=== PATIENT | female | born 1980 | race American Indian/Alaskan Native ===

== ENCOUNTER 2019-06-03 03:06 | Emergency (ER) | payer MEDICAID ==
[2019-06-03 03:14] VITALS: BP 130/91
== END 2019-06-03 08:00 | disposition left against medical advice (07) ==
LOC: ED 03:06
DX: R42 Dizziness and giddiness (principal); Z53.21 Procedure and treatment not carried out due to patient leaving prior to being seen by health care provider

== ENCOUNTER 2019-06-17 21:33 | Emergency (ER) | payer MEDICAID ==
[2019-06-17 22:14] VITALS: BP 142/97
[2019-06-17] MEDS ORDERED: dexAMETHasone 4 MG/ML VIAL IV ONE (22:14)
[2019-06-17] MEDS ORDERED: FAMOTIDINE 20 MG/2 ML INJ IV ONE (22:14)
[2019-06-17] MEDS ORDERED: diphenhydrAMINE 50 MG/ML VIAL IV ONE (22:14)
[2019-06-17] MEDS ORDERED: SODIUM CHLORIDE 0.9% 1000 ML 1,000 ML IV ONE (22:14)
--- NOTE | 2019-06-17 22:14 | Emergency Department Report ---
Blank Doc - Documentation Documentation: 38-year-old female that presents with allergies reaction and itching. exam: no angioedema present. No SOB. This initial assessment/diagnostic orders/clinical plan/treatment(s) is/are subject to change based on patient's health status, clinical progression and re-assessment by fellow clinical providers in the ED. Further treatment and workup at subsequent clinical providers discretion. Patient/guardians urged not to elope from the ED as their condition may be serious if not clinically assessed and managed. Initial orders include: 1- Patient sent to [facility] for further evaluation and treatment 2- treatment in [facility]
[2019-06-18] MEDS ORDERED: diphenhydrAMINE 50 MG/ML VIAL ONE (00:32)
[2019-06-18] MEDS ORDERED: dexAMETHasone 4 MG/ML VIAL ONE (00:32)
[2019-06-18] MEDS ORDERED: FAMOTIDINE 20 MG/2 ML INJ IV ONE (00:33)
--- NOTE | 2019-06-18 01:12 | Emergency Department Report ---
ED General Adult HPI - General Chief complaint: Allergic Reaction Stated complaint: ALLERGIC REACTION Time Seen by Provider: 06/17/19 22:13 Source: patient Mode of arrival: Ambulatory Limitations: No Limitations - History of Present Illness Initial comments: 38-year-old -[place] female presents to the emergency room stating she's has a rash all over that started over a week ago. Patient states it was only rash when she went to sleep and now is all the time. Patient reports itching. Denies any swelling to the tongue or throat denies any wheezes chest pain or shortness of breathing. Patient reports she's been taking Benadryl which was helping but no longer helping. Patient reports she was seen by her primary care provider and they did an allergy panel which was negative for any offending agents. Patient denies any change of soaps deodorant lotions perfumes no new pets or new detergents. Patient does admit to being under increased stress. Patient does report a past medical history of hypertension but never started blood pressure medication. Onset/Timin -: week(s) Location: face, abdomen, upper extremity, lower extremity Associated Symptoms: denies other symptoms Treatments Prior to Arrival: other (Benadryl) - Related Data Home Medications Medication Instructions Recorded Confirmed Last Taken Pnv with Ca,No.72/Iron/FA 1 tab PO DAILY 07/23/13 07/23/13 07/23/13 07:30 [ Plus Tablet] 1 Previous Rx's Medication Instructions Recorded Last Taken Type EPINEPHrine 0.15 mg IJ ONCE PRN #2 auto.injct 06/18/19 Unknown Rx predniSONE [Deltasone] 40 mg PO QDAY 5 Days #5 tab 06/18/19 Unknown Rx Allergies Allergy/AdvReac Type Severity Reaction Status Date / Time tracie Allergy Angioedema Verified 06/03/19 03:51 ED Review of Systems ROS: Stated complaint: ALLERGIC REACTION Other details as noted in HPI Comment: All other systems reviewed and negative ED Past Medical Hx - Past Medical History Previous Medical History?: No Hx Hypertension: No Hx Diabetes: No Hx Deep Vein Thrombosis: No Hx Renal Disease: No Hx Sickle Cell Disease: No Hx Seizures: No Hx Asthma: No Hx HIV: No - Surgical History Past Surgical History?: Yes Additional Surgical History: RIGHT OVARY REMOVAL AFTER OVARIAN CYST - Social History Smoking Status: Never Smoker - Medications Home Medications: Home Medications Medication Instructions Recorded Confirmed Last Taken Type Pnv with Ca,No.72/Iron/FA 1 tab PO DAILY 07/23/13 07/23/13 07/23/13 07:30 History [ Plus Tablet] 1 EPINEPHrine 0.15 mg IJ ONCE PRN #2 auto.injct 06/18/19 Unknown Rx predniSONE [Deltasone] 40 mg PO QDAY 5 Days #5 tab 06/18/19 Unknown Rx ED Physical Exam - General Limitations: No Limitations General appearance: alert, in no apparent distress - Head Head exam: Present: atraumatic, normocephalic - Eye Eye exam: Present: normal appearance - ENT ENT exam: Present: normal exam, mucous membranes moist - Neck Neck exam: Present: normal inspection, full ROM - Respiratory Respiratory exam: Present: normal lung sounds bilaterally. Absent: respiratory distress, wheezes - Cardiovascular Cardiovascular Exam: Present: regular rate, normal rhythm. Absent: systolic murmur, diastolic murmur, rubs, gallop - Neurological Exam Neurological exam: Present: alert, oriented X3 - Psychiatric Psychiatric exam: Present: normal affect, normal mood - Expanded Skin Exam Expanded Distribution of rash: generalized Description of rash: Present: urticarial ED Course Vital Signs 06/17/19 22:12 Temperature 98.2 F Pulse Rate 83 Respiratory 18 Rate Blood Pressure 142/97 O2 Sat by Pulse 100 Oximetry ED Medical Decision Making - Medical Decision Making 38-year-old -[place] female presents to the emergency room stating she's has a rash all over that started over a week ago. Patient states it was only rash when she went to sleep and now is all the time. Patient reports itching. Denies any swelling to the tongue or throat denies any wheezes chest pain or shortness of breathing. Patient reports she's been taking Benadryl which was helping but no longer helping. Patient reports she was seen by her primary care provider and they did an allergy panel which was negative for any offending agents. Patient denies any change of soaps deodorant lotions perfumes no new pets or new detergents. Patient does admit to being under increased stress. Patient does report a past medical history of hypertension but never started blood pressure medication. Patient has an IV with normal saline and she's had dexamethasone per Pepcid and Benadryl. She'll be discharged home on a prednisone pack continue with Hiren Jones as needed and follow up with her primary care provider and/or allergies. Critical care attestation.: If time is entered above; I have spent that time in minutes in the direct care of this critically ill patient, excluding procedure time. ED Disposition Clinical Impression: Urticaria Allergic reaction Qualifiers: Encounter type: initial encounter Qualified Code(s): T78.40XA - Allergy, unspecified, initial encounter Disposition: TO HOME OR SELFCARE Is pt being admited?: No Does the pt Need Aspirin: No Condition: Stable Instructions: Urticaria (ED) Additional Instructions: Continue with prednisone as prescribed. Continue with the Benadryl every 6-8 hours as needed. Please use EpiPen only if you have an anaphylactic attack which is when you have swelling to your windpipe or to your tongue. 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 Prescriptions: predniSONE [Deltasone] 40 mg PO QDAY 5 Days #5 tab EPINEPHrine 0.15 mg IJ ONCE PRN #2 auto.injct PRN Reason: Anaphylaxis Referrals: JETHRO HERZOG JR, MD [Staff Physician] - 3-5 Days Forms: Work/School Release Form(ED)
== END 2019-06-18 01:35 | disposition home or self-care (01) ==
LOC: ED 21:33
DX: T78.40XA Allergy, unspecified, initial encounter (principal); L50.9 Urticaria, unspecified; Z79.899 Other long term (current) drug therapy; Z91.018 Allergy to other foods; X58.XXXA Exposure to other specified factors, initial encounter
CPT/HCPCS: 96374; 96375; 99282; J1100; J1200; J7030